=== PATIENT | female | born 1955 | race African-American/Black ===

== ENCOUNTER → 2018-04-18 | Emergency (ER) | payer OTHER ==
[~2018-04-18] MED LIST: ASPIRIN EC81 M1 PO; B-100 COMPLEX1 EAC1; B12INJ PO; CELEXA 20 MG TA20 MG PO; CLONIDINE0.1 PO; CORVITE FE TAB1 EACH; LEXAPRO 10 MG T10 MG; LISINOPRIL10 MG PO; PENTASA500 MG PO; POTASSIUM20; TRILIPIX135 MG; VITAMIN D1000 UNI1
== END ==
LOC: ER 20:14
DX: Z53.21 Procedure and treatment not carried out due to patient leaving prior to being seen by health care provider (principal)